=== PATIENT | female | born 1980 | race Caucasian/White ===

== ENCOUNTER 2018-06-21 18:33 | Emergency (ER) | payer OTHER ==
[~2018-06-21] VITALS: Ht 157.5 cm; Wt 127.0 kg
[~2018-06-21 18:33] MED LIST: AFRIN15 ML NS; BENTYL 20 MG TA20 M1 PO; CEPHALEXIN 500500 M3 PO; DIFLUCAN200 MG PO; DUONEB 2.5-0.5 M3 ML INH; FIRST-BXN MOUT237 ML SWISH&SPIT; IBUPROFEN 800800 M1 PO; LORATIDINE 10 M10 M1 PO; MUCINEX100 MG PO; NOHOMEMEDICATIONS; VISTARIL 25 MG25 M1 PO; ZITHROMAX250 MG NG; ZOFRAN4 MG PO; ZPAK PO
[2018-06-21] MEDS ORDERED: OMEPRAZOLE20 M1 PO (18:48)
[2018-06-21] MEDS ORDERED: NORCO 5-325 TA1 EACH PO (20:25)
[2018-06-21 20:36] VITALS: BP 130/87
== END 2018-06-21 20:37 | disposition home or self-care (01) ==
LOC: M.ERS 18:33
DX: M54.42 Lumbago with sciatica, left side (principal); F32.9 Major depressive disorder, single episode, unspecified; F41.9 Anxiety disorder, unspecified; F42.9 Obsessive-compulsive disorder, unspecified; Z90.49 Acquired absence of other specified parts of digestive tract; Z88.1 Allergy status to other antibiotic agents; Z88.5 Allergy status to narcotic agent; Z88.8 Allergy status to other drugs, medicaments and biological substances